=== PATIENT | male | born 1985 | race Caucasian/White ===

== ENCOUNTER 2022-08-17 17:53 | Emergency (ER) | payer BC ==
[~2022-08-17] VITALS: Ht 177.8 cm; Wt 80.0 kg
[2022-08-17] MEDS ORDERED: KETOROLAC 60MG/2ML VIAL IM ONE (18:00)
[2022-08-17] MEDS ORDERED: NAPR500T7 MT (19:47)
[2022-08-17 20:45] VITALS: BP 126/63
== END 2022-08-17 20:50 | disposition home or self-care (01) ==
LOC: ER 17:53
DX: S76.112A Strain of left quadriceps muscle, fascia and tendon, initial encounter (principal); G89.11 Acute pain due to trauma; W19.XXXA Unspecified fall, initial encounter; Y93.67 Activity, basketball; Y92.89 Other specified places as the place of occurrence of the external cause; Y99.8 Other external cause status
CPT/HCPCS: 29505; 73562; 73590; 96372; 99284; J1885; L1830; Z7610